=== PATIENT | male | born 1990 | race African-American/Black ===

== ENCOUNTER 2018-05-05 14:35 | Emergency (ER) | payer OTHER ==
[~2018-05-05] VITALS: Ht 182.9 cm; Wt 80.0 kg
[2018-05-05] MEDS ORDERED: BACITRACIN ZINC 15GM TUBE TOP ONE (15:15)
[2018-05-05] MEDS ORDERED: BACITRACIN ZINC OINT UDPKT TOP ONE (15:30)
[2018-05-05 15:31] VITALS: BP 119/69
== END 2018-05-05 15:32 | disposition home or self-care (01) ==
LOC: ER 14:35
DX: S80.02XA Contusion of left knee, initial encounter (principal); V89.2XXA Person injured in unspecified motor-vehicle accident, traffic, initial encounter; Z88.0 Allergy status to penicillin; Z88.6 Allergy status to analgesic agent; Y93.89 Activity, other specified; Y92.89 Other specified places as the place of occurrence of the external cause; Y99.8 Other external cause status
CPT/HCPCS: 99283